=== PATIENT | female | born 1995 | race Caucasian/White ===

== ENCOUNTER 2023-03-29 18:09 | Inpatient (IN) | payer MEDICAID ==
[~2023-03-29] VITALS: Ht 172.7 cm; Wt 89.1 kg
[2023-03-29 22:07] LABS: BASOPHILS # (AUTO) 0.1 X10'3 (0-0.2); BASOPHILS % (AUTO) 0.5 % (0-1); EOSINOPHILS # (AUTO) 0.1 X10'3 (0-0.9); EOSINOPHILS % (AUTO) 0.6 % (0-6); HEMATOCRIT 40.8 % (35.0-45.0); HEMOGLOBIN 14.2 g/dl (12.0-16.0); LYMPHOCYTES # (AUTO) 1.5 X10'3 (1.1-4.8); LYMPHOCYTES % (AUTO) 14.2 % (21-51); MEAN CORPUSCULAR HEMOGLOBIN 30.5 PG (27.0-31.0); MEAN CORPUSCULAR HGB CONC 34.8 g/dL (33.0-36.5); MEAN CORPUSCULAR VOLUME 87.7 FL (78-98); MEAN PLATELET VOLUME 7.5 FL (7.4-10.4); MONOCYTES # (AUTO) 1.2 X10'3 (0-0.9); MONOCYTES % (AUTO) 11.6 % (2-12); NEUTROPHILS # (AUTO) 7.7 X10'3 (1.8-7.7); NEUTROPHILS % (AUTO) 73.1 % (42-75); PLATELET COUNT 262 X10'3 (140-440); RED BLOOD COUNT 4.65 X10'6 (4.20-5.60); RED CELL DISTRIBUTION WIDTH 12.5 % (11.5-14.5); WHITE BLOOD COUNT 10.6 X10'3 (4.5-11.0)
[2023-03-29 22:19] LABS: ALANINE AMINOTRANSFERASE 17 U/L (12-78); ALBUMIN 3.2 G/DL (3.4-5.0); ALBUMIN/GLOBULIN RATIO 0.8 (1.1-1.5); ALKALINE PHOSPHATASE 71 IU/L (46-116); ANION GAP 8 (8-16); ASPARTATE AMINO TRANSFERASE 13 U/L (10-37); BILIRUBIN,TOTAL 0.8 MG/DL (0.1-1.0); BLOOD UREA NITROGEN 7 MG/DL (7-18); BUN/CREATININE RATIO 8.3 (10.0-20.0); CALCIUM 8.6 MG/DL (8.5-10.1); CHLORIDE 97 MMOL/L (99-107); CREATININE 0.84 MG/DL (0.40-0.90); GLUCOSE 105 MG/DL (70-104); LIPASE 21 U/L (16-77); POTASSIUM 3.3 MMOL/L (3.5-5.1); SODIUM 133 MMOL/L (135-145); TOTAL PROTEIN 7.2 G/DL (6.4-8.2); eCRCL 101 ML/MIN; eGFR 81 ML/MIN
[2023-03-29] MEDS ORDERED: piperacillin/tazo 3.375gm/50ml 50 ML IV ONE (22:20)
[2023-03-29] MEDS ORDERED: HYDROmorphone inj. 0.5 MG/0.5 ML DISP.SYRIN IV PRN (23:05)
[2023-03-29] MEDS ORDERED: mag hydrox/Alum hydrox/simeth 30ml oral suspension PO PRN (23:05)
[2023-03-29] MEDS ORDERED: magnesium 2GM in 50ml NS 50 ML IV PRN (23:05)
[2023-03-29] MEDS ORDERED: magnesium hydroxide 30ml (MOM) UD suspension PO PRN (23:05)
[2023-03-29] MEDS ORDERED: magnesium 4gm in 100ml NS 100 ML IV PRN (23:05)
[2023-03-29] MEDS ORDERED: ondansetron/PF 4mg/2ml inj IV PRN (23:05)
[2023-03-29] MEDS ORDERED: potassium Cl 20 mEq SR tablet PO PRN (23:05)
[2023-03-29] MEDS ORDERED: acetaminophen 325mg tablet PO PRN (23:05)
[2023-03-29] MEDS ORDERED: potassium Cl 40MEQ/1/2NS 520ml 520 ML IV PRN (23:05)
[2023-03-30] VITALS (8 sets, daily range): BP systolic 105–127; BP diastolic 59–74; PULSE 74–95; RESP 14–20; TEMP 97.7–99.1; O2SAT 95–99
[2023-03-30] MEDS: normal saline 1000ml 1,000 ML IV SCH ×2 (00:09→13:04)
[2023-03-30 00:45] LABS: URINE HCG NEGATIVE (NEG)
[2023-03-30 00:47] LABS: BILIRUBIN,URINE SMALL (Neg); CLARITY,URINE SLIGHTLY CLOUDY (Clear); GLUCOSE, URINE NEGATIVE (Neg); KETONES,URINE 15 mg/dl (Neg); LEUKOCYTE ESTERASE ,URINE NEGATIVE (Neg); NITRITES, URINE NEGATIVE (Neg); OCCULT BLOOD,URINE TRACE-INTACT (Neg); PH,URINE 5.5 (4.8-8.0); PROTEIN,URINE TRACE mg/dl (Neg); UROBILINOGEN,URINE 0.2 E.U/dL (0.2-1.0)
[2023-03-30 00:53] LABS: COLOR,URINE DARK YELLOW (Yellow); UA COLLECTION TYPE CLN CATCH MIDSTREAM
[2023-03-30 00:57] LABS: MUCUS STRANDS MANY /LPF (Neg); SQUAMOUS EPITHELIAL CELL,UR FEW /LPF (FEW); TRANSITIONAL EPI CELLS,URINE FEW /HPF
[2023-03-30 01:09] LABS: RBC,URINE 0-2 /HPF (0-2); WBC,URINE 0-4 /HPF (0-4)
[2023-03-30 01:14] LABS: BACTERIA,URINE 1+ /HPF (Neg)
--- NOTE | 2023-03-30 01:50 | NUR ---
PT ARRIVED FROM ED BY WHEELCHAIR. PT HAS BEEN ORIENTED TO THE ROOM. RECEEIVED REPORT FROM ABHILASH.
[2023-03-30] MEDS: HYDROmorphone 1 mg/ml syringe IV PRN ×6 (01:51→23:57)
[2023-03-30] MEDS ORDERED: piperacillin/tazo 4.5gm/100ml 100 ML IV SCH ×2 (02:00)
[2023-03-30] MEDS: potassium Cl 20 mEq SR tablet PO PRN ×3 (02:31→20:03)
[2023-03-30] MEDS: piperacillin/tazo 4.5gm/100ml 100 ML IV SCH ×3 (02:44→19:00)
[2023-03-30] MEDS ORDERED: ONDA-103 PO (02:51)
[2023-03-30] MEDS ORDERED: HYDR-3973 PO (02:51)
--- NOTE | 2023-03-30 06:19 | NUR ---
Problems reprioritized. Patient report given, questions answered & plan of care reviewed with THANIA ROMERO.
--- NOTE | 2023-03-30 06:29 | NUR ---
PT'S HOME MEDICATION SENT TO PHARMACY.
[2023-03-30 06:50] LABS: BASOPHILS % (AUTO) 0.3 % (0-1); EOSINOPHILS # (AUTO) 0.1 X10'3 (0-0.9); EOSINOPHILS % (AUTO) 0.7 % (0-6); HEMOGLOBIN 13.1 g/dl (12.0-16.0); LYMPHOCYTES # (AUTO) 1.7 X10'3 (1.1-4.8); MEAN CORPUSCULAR HEMOGLOBIN 30.6 PG (27.0-31.0); MEAN CORPUSCULAR HGB CONC 34.4 g/dL (33.0-36.5); MEAN PLATELET VOLUME 7.5 FL (7.4-10.4); MONOCYTES # (AUTO) 1.2 X10'3 (0-0.9); NEUTROPHILS # (AUTO) 7.3 X10'3 (1.8-7.7); PLATELET COUNT 238 X10'3 (140-440); RED BLOOD COUNT 4.26 X10'6 (4.20-5.60); RED CELL DISTRIBUTION WIDTH 12.7 % (11.5-14.5); WHITE BLOOD COUNT 10.4 X10'3 (4.5-11.0)
[2023-03-30 07:13] LABS: ALANINE AMINOTRANSFERASE 21 U/L (12-78); ALBUMIN 2.8 G/DL (3.4-5.0); ALBUMIN/GLOBULIN RATIO 0.7 (1.1-1.5); ALKALINE PHOSPHATASE 67 IU/L (46-116); ANION GAP 3 (8-16); ASPARTATE AMINO TRANSFERASE 19 U/L (10-37); BILIRUBIN,TOTAL 1.2 MG/DL (0.1-1.0); BLOOD UREA NITROGEN 6 MG/DL (7-18); BUN/CREATININE RATIO 7.1 (10.0-20.0); CALCIUM 8.1 MG/DL (8.5-10.1); CHLORIDE 98 MMOL/L (99-107); CREATININE 0.85 MG/DL (0.40-0.90); GLUCOSE 100 MG/DL (70-104); MAGNESIUM 2.1 MG/DL (1.5-2.4); POTASSIUM 3.4 MMOL/L (3.5-5.1); SODIUM 133 MMOL/L (135-145); TOTAL CARBON DIOXIDE 32.2 MMOL/L (24-32); TOTAL PROTEIN 6.6 G/DL (6.4-8.2); eCRCL 100 ML/MIN; eGFR 80 ML/MIN
[2023-03-30] MEDS: K and/or MAG REPLACEMENT MC SCH ×2 (08:00→20:00)
[2023-03-30] MEDS: docusate sod 100mg capsule PO SCH ×2 (08:53→19:53)
--- NOTE | 2023-03-30 18:08 | NUR ---
Report to Aarti MOTNEIRO
[2023-03-31] VITALS (21 sets, daily range): BP systolic 102–146; BP diastolic 64–90; PULSE 77–104; RESP 15–32; TEMP 96.9–98.7; O2SAT 93–98
[2023-03-31] MEDS: normal saline 1000ml 1,000 ML IV SCH ×3 (00:01→15:05)
[2023-03-31] MEDS: piperacillin/tazo 4.5gm/100ml 100 ML IV SCH ×3 (04:00→18:00)
[2023-03-31] MEDS: HYDROmorphone 1 mg/ml syringe IV PRN ×3 (04:00→21:55)
--- NOTE | 2023-03-31 06:23 | NUR ---
Patient in room [facility]TH[facility] 4011. I have received report from Aarti MONTEIRO and had the opportunity to ask questions and assume patient care.
--- NOTE | 2023-03-31 06:27 | NUR ---
Problems reprioritized. Patient report given, questions answered & plan of care reviewed with THANIA ROMERO.
[2023-03-31 07:03] LABS: BASOPHILS % (AUTO) 0.3 % (0-1); EOSINOPHILS # (AUTO) 0.1 X10'3 (0-0.9); EOSINOPHILS % (AUTO) 0.8 % (0-6); HEMOGLOBIN 12.1 g/dl (12.0-16.0); LYMPHOCYTES # (AUTO) 1.4 X10'3 (1.1-4.8); LYMPHOCYTES % (AUTO) 17.6 % (21-51); MEAN CORPUSCULAR HEMOGLOBIN 30.5 PG (27.0-31.0); MEAN CORPUSCULAR HGB CONC 34.5 g/dL (33.0-36.5); MEAN CORPUSCULAR VOLUME 88.3 FL (78-98); MEAN PLATELET VOLUME 7.6 FL (7.4-10.4); MONOCYTES % (AUTO) 12.1 % (2-12); NEUTROPHILS # (AUTO) 5.6 X10'3 (1.8-7.7); NEUTROPHILS % (AUTO) 69.2 % (42-75); PLATELET COUNT 241 X10'3 (140-440); RED BLOOD COUNT 3.97 X10'6 (4.20-5.60); RED CELL DISTRIBUTION WIDTH 12.5 % (11.5-14.5); WHITE BLOOD COUNT 8.1 X10'3 (4.5-11.0)
[2023-03-31 07:13] LABS: ALANINE AMINOTRANSFERASE 23 U/L (12-78); ALBUMIN 2.4 G/DL (3.4-5.0); ALBUMIN/GLOBULIN RATIO 0.6 (1.1-1.5); ALKALINE PHOSPHATASE 94 IU/L (46-116); ANION GAP 6 (8-16); ASPARTATE AMINO TRANSFERASE 13 U/L (10-37); BILIRUBIN,TOTAL 0.7 MG/DL (0.1-1.0); BLOOD UREA NITROGEN 5 MG/DL (7-18); BUN/CREATININE RATIO 7.4 (10.0-20.0); CALCIUM 8.2 MG/DL (8.5-10.1); CHLORIDE 102 MMOL/L (99-107); CREATININE 0.68 MG/DL (0.40-0.90); GLUCOSE 86 MG/DL (70-104); MAGNESIUM 2.1 MG/DL (1.5-2.4); POTASSIUM 3.7 MMOL/L (3.5-5.1); SODIUM 134 MMOL/L (135-145); TOTAL CARBON DIOXIDE 25.9 MMOL/L (24-32); TOTAL PROTEIN 6.2 G/DL (6.4-8.2); eCRCL 125 ML/MIN; eGFR > 90 ML/MIN
[2023-03-31 07:27] LABS: INR 1.1 INR; PROTHROMBIN TIME 11.4 SECONDS (9.0-12.0)
[2023-03-31] MEDS: K and/or MAG REPLACEMENT MC SCH ×2 (08:00→20:00)
[2023-03-31] MEDS: docusate sod 100mg capsule PO SCH ×2 (08:00→21:53)
[2023-03-31 10:16] LABS: HCG SERUM QL NEGATIVE
[2023-03-31 10:44] LABS: PREOP URINE HCG NEGATIVE (NEGATIVE)
[2023-03-31] MEDS ORDERED: dextrose 50%-water 50ml dispensing syringe IV ONE (11:51)
--- NOTE | 2023-03-31 12:07 | NUR ---
PreOp blood sugar test: 69. One half amp D50 admin per md order prn. Report given to THAINA Johnson in pre-op. Elizabeth will recheck accucheck when arrives to RR. Mother accompanied pt to OR w/ OR staff.
[2023-03-31] MEDS ORDERED: BUPIVAcaine/PF 2.5 mg/ml (0.25%) 30ml vial ONE (14:11)
[2023-03-31] MEDS ORDERED: sevoflurane 250ml liquid IH ONE (14:34)
[2023-03-31] MEDS ORDERED: fentaNYL/PF 50MCG/1 ML 2ML syringe ONE (14:38)
[2023-03-31] MEDS ORDERED: midazolam 1 mg/ML 2ml injection ONE (14:39)
[2023-03-31] MEDS ORDERED: propofol inj 20 ML IV ONE (14:39)
[2023-03-31] MEDS ORDERED: rocuronium 10mg/ml inj IV ONE (14:39)
[2023-03-31] MEDS ORDERED: ceFOXitin 1000 MG inj ONE ×2 (14:50)
[2023-03-31] MEDS ORDERED: dexamethasone sod phosphate 4mg/ml inj. ONE (14:55)
[2023-03-31] MEDS ORDERED: ondansetron/PF 4mg/2ml inj ONE (15:49)
[2023-03-31] MEDS ORDERED: BUPIVAcaine/PF 2.5 mg/ml (0.25%) 30ml vial IJ ONE (15:56)
[2023-03-31] MEDS ORDERED: sugammadex 200mg/2ml injection IV ONE (16:03)
--- NOTE | 2023-03-31 16:15 | NUR ---
Received from OR via [facility]OSP[facility] BED TO RR 7, accompanied by Anesthesiologist TIM and report given by Anesthesiologist. PT PRESENTS ON 6L VIA MASK WITH SPO2 AT 97%. VSS. OK TO GIVE TYLENOL IV FOR TEMP 38.1 PER MD IN ROOM. HE WILL ENTER ORDER. 3 ABD LAP SITES WITH DERMABOND AND ONE OF THOSE SITES HAVE A LUISA DRAIN WITH GAUZE AND TEGADERM WELL. LR RUNNING THRU PIV. PT IS AROUSABLE AND DOES NOT COMPLAIN OF PAIN, NAUSEA, OR VOMITING.
[2023-03-31] MEDS ORDERED: meperidine/PF 25mg/ml syringe IV PRN ×3 (16:25)
[2023-03-31] MEDS ORDERED: labetalol 20mg/4ml (5mg/ml) syringe IV PRN (16:25)
[2023-03-31] MEDS ORDERED: ondansetron/PF 4mg/2ml inj IV PRN (16:25)
[2023-03-31] MEDS ORDERED: morphine 2 MG/ML inj. syringe IV PRN (16:25)
[2023-03-31] MEDS ORDERED: morphine 4 MG/ML inj SYRINge IV PRN (16:25)
[2023-03-31] MEDS ORDERED: acetaminophen 1,000mg/100ml IV 100 ML IV ONE (16:25)
[2023-03-31] MEDS ORDERED: ringers solution, lacted 1,000 ML IV SCH (16:25)
--- NOTE | 2023-03-31 17:25 | NUR ---
PT HAS MET TRANSFER CRITERIA BACK TO ROOM 4011A. CALLED REPORT TO THANIA ROMERO. ALL QUESTIONS, COMMENTS, AND CONCERNS WERE ANSWERED AT THIS TIME. ABD DRESSINGS REMAINS CDI. LUISA DRAIN IN PLACE. PT WAS TRANSFERRED TO ROOM, CALL LIGHT WITHIN REACH, BLL, 2 RAILS DOWN. PATIENT HOOKED UP TO POST OP VITALS. SOCKS IN PERSONAL BAG ON BED. MOM AT BEDSIDE. NURSE HEATHER IS AWARE OF PATIENT IN ROOM.
--- NOTE | 2023-03-31 18:50 | NUR ---
Patient in room [facility]TH[facility] 4011. I have received report from Josefina MONTEIRO and had the opportunity to ask questions and assume patient care.
[2023-04-01] MEDS: normal saline 1000ml 1,000 ML IV SCH ×3 (01:17→21:05)
[2023-04-01 01:58] VITALS: BP 123/75; PULSE 70; RESP 16; TEMP 98.6; O2SAT 97
[2023-04-01] MEDS: HYDROmorphone 1 mg/ml syringe IV PRN ×3 (02:10→18:49)
[2023-04-01] MEDS: piperacillin/tazo 4.5gm/100ml 100 ML IV SCH ×3 (03:09→18:49)
[2023-04-01 06:00] VITALS: BP 127/99; PULSE 72; RESP 16; TEMP 98.6; O2SAT 96
--- NOTE | 2023-04-01 06:52 | NUR ---
Problems reprioritized. Patient report given, questions answered & plan of care reviewed with Josefina MONTEIRO.
[2023-04-01 07:06] LABS: BASOPHILS % (AUTO) 0.1 % (0-1); EOSINOPHILS % (AUTO) 0 % (0-6); HEMATOCRIT 34.7 % (35.0-45.0); HEMOGLOBIN 11.8 g/dl (12.0-16.0); LYMPHOCYTES # (AUTO) 0.6 X10'3 (1.1-4.8); LYMPHOCYTES % (AUTO) 6.5 % (21-51); MEAN CORPUSCULAR HEMOGLOBIN 29.8 PG (27.0-31.0); MEAN CORPUSCULAR VOLUME 87.7 FL (78-98); MEAN PLATELET VOLUME 7.5 FL (7.4-10.4); MONOCYTES # (AUTO) 0.5 X10'3 (0-0.9); MONOCYTES % (AUTO) 4.8 % (2-12); NEUTROPHILS # (AUTO) 8.3 X10'3 (1.8-7.7); NEUTROPHILS % (AUTO) 88.6 % (42-75); PLATELET COUNT 314 X10'3 (140-440); RED BLOOD COUNT 3.95 X10'6 (4.20-5.60); RED CELL DISTRIBUTION WIDTH 12.4 % (11.5-14.5); WHITE BLOOD COUNT 9.4 X10'3 (4.5-11.0)
[2023-04-01 07:34] LABS: ALANINE AMINOTRANSFERASE 38 U/L (12-78); ALBUMIN 2.4 G/DL (3.4-5.0); ALBUMIN/GLOBULIN RATIO 0.6 (1.1-1.5); ALKALINE PHOSPHATASE 106 IU/L (46-116); ANION GAP 8 (8-16); ASPARTATE AMINO TRANSFERASE 31 U/L (10-37); BILIRUBIN,TOTAL 0.4 MG/DL (0.1-1.0); BLOOD UREA NITROGEN 6 MG/DL (7-18); BUN/CREATININE RATIO 9.5 (10.0-20.0); CALCIUM 8.6 MG/DL (8.5-10.1); CHLORIDE 103 MMOL/L (99-107); CREATININE 0.63 MG/DL (0.40-0.90); GLUCOSE 124 MG/DL (70-104); MAGNESIUM 2.1 MG/DL (1.5-2.4); POTASSIUM 3.7 MMOL/L (3.5-5.1); SODIUM 136 MMOL/L (135-145); TOTAL CARBON DIOXIDE 25.4 MMOL/L (24-32); TOTAL PROTEIN 6.6 G/DL (6.4-8.2); eCRCL 135 ML/MIN; eGFR > 90 ML/MIN
[2023-04-01 07:45] VITALS: RESP 18
[2023-04-01] MEDS: K and/or MAG REPLACEMENT MC SCH ×2 (08:00→20:00)
[2023-04-01] MEDS: docusate sod 100mg capsule PO SCH ×2 (08:42→20:00)
[2023-04-01] MEDS: HYDROcodone/acetaminophen 5mg/325mg tablet PO PRN ×2 (16:03→22:21)
[2023-04-01 18:00] VITALS: BP 110/66; PULSE 82; RESP 16; TEMP 97.3; O2SAT 96
--- NOTE | 2023-04-01 18:35 | NUR ---
Problems reprioritized. Patient report given, questions answered & plan of care reviewed with Prudence RN.
[2023-04-01 20:00] VITALS: RESP 16; O2SAT 96
[2023-04-01 22:00] VITALS: BP 103/55; PULSE 66; RESP 16; TEMP 97.8; O2SAT 97
[2023-04-02] MEDS: HYDROmorphone 1 mg/ml syringe IV PRN ×2 (02:00→06:49)
[2023-04-02] MEDS: piperacillin/tazo 4.5gm/100ml 100 ML IV SCH ×2 (03:21→11:10)
[2023-04-02 06:00] VITALS: BP 101/57; PULSE 64; RESP 16; TEMP 98.4; O2SAT 98
--- NOTE | 2023-04-02 06:04 | NUR ---
Problems reprioritized. Patient report given, questions answered & plan of care reviewed with DARIA STEPHENS.
[2023-04-02 06:59] LABS: BASOPHILS % (AUTO) 0.4 % (0-1); EOSINOPHILS # (AUTO) 0.1 X10'3 (0-0.9); EOSINOPHILS % (AUTO) 0.9 % (0-6); HEMATOCRIT 32.6 % (35.0-45.0); LYMPHOCYTES # (AUTO) 2.1 X10'3 (1.1-4.8); LYMPHOCYTES % (AUTO) 33.2 % (21-51); MEAN CORPUSCULAR HGB CONC 33.7 g/dL (33.0-36.5); MEAN PLATELET VOLUME 7.1 FL (7.4-10.4); MONOCYTES # (AUTO) 0.6 X10'3 (0-0.9); MONOCYTES % (AUTO) 9.2 % (2-12); NEUTROPHILS # (AUTO) 3.6 X10'3 (1.8-7.7); NEUTROPHILS % (AUTO) 56.3 % (42-75); PLATELET COUNT 328 X10'3 (140-440); RED BLOOD COUNT 3.66 X10'6 (4.20-5.60); RED CELL DISTRIBUTION WIDTH 12.3 % (11.5-14.5); WHITE BLOOD COUNT 6.4 X10'3 (4.5-11.0)
[2023-04-02] MEDS: normal saline 1000ml 1,000 ML IV SCH (07:05)
[2023-04-02 07:07] LABS: ALANINE AMINOTRANSFERASE 32 U/L (12-78); ALBUMIN 2.3 G/DL (3.4-5.0); ALBUMIN/GLOBULIN RATIO 0.6 (1.1-1.5); ALKALINE PHOSPHATASE 82 IU/L (46-116); ANION GAP 4 (8-16); ASPARTATE AMINO TRANSFERASE 34 U/L (10-37); BILIRUBIN,TOTAL 0.2 MG/DL (0.1-1.0); BLOOD UREA NITROGEN 8 MG/DL (7-18); BUN/CREATININE RATIO 10.8 (10.0-20.0); CALCIUM 8.6 MG/DL (8.5-10.1); CHLORIDE 105 MMOL/L (99-107); CREATININE 0.74 MG/DL (0.40-0.90); GLUCOSE 85 MG/DL (70-104); MAGNESIUM 2.1 MG/DL (1.5-2.4); POTASSIUM 3.9 MMOL/L (3.5-5.1); SODIUM 139 MMOL/L (135-145); TOTAL CARBON DIOXIDE 30.4 MMOL/L (24-32); TOTAL PROTEIN 6.2 G/DL (6.4-8.2); eCRCL 115 ML/MIN; eGFR > 90 ML/MIN
[2023-04-02 08:00] VITALS: RESP 19; O2SAT 96
[2023-04-02] MEDS: K and/or MAG REPLACEMENT MC SCH (08:00)
[2023-04-02] MEDS: docusate sod 100mg capsule PO SCH (08:29)
[2023-04-02 10:00] VITALS: BP 113/62; PULSE 72; RESP 19; TEMP 97.6; O2SAT 96
[2023-04-02] MEDS: HYDROcodone/acetaminophen 5mg/325mg tablet PO PRN (10:23)
--- NOTE | 2023-04-02 11:58 | NUR ---
LUISA discontinued per MD orders, tolerated well, tip intact.
[2023-04-02] MEDS ORDERED: HYDR-3973 PO (11:59)
--- NOTE | 2023-04-02 12:21 | NUR ---
I have reviewed and agree with all interventions, assessments performed and documented by Chen .
--- NOTE | 2023-04-02 13:10 | NUR ---
Patient discharged home via POV with all personal belongings, including medications that had been stored in the pharmacy. PIV was discontinued with tip intact, tolerated well. Questions answered. Patient was alert and appropriate at the time of discharge.
== END 2023-04-02 13:25 | disposition home or self-care (01) | DRG 263 ==
LOC: ER 18:11 → ED HOLD 23:11 → ORTHO 4S 03-30 01:48
PROVIDERS: ADMIT Family Medicine; ATTEND Internal Medicine
PROC: 0FT44ZZ Resection of Gallbladder, Percutaneous Endoscopic Approach (ICD-10-PCS; principal; 2023-03-31 14:34)
DX: K80.00 Calculus of gallbladder with acute cholecystitis without obstruction (principal); E87.1 Hypo-osmolality and hyponatremia; E66.9 Obesity, unspecified; F17.290 Nicotine dependence, other tobacco product, uncomplicated; E87.6 Hypokalemia; Z83.3 Family history of diabetes mellitus; Z82.5 Family history of asthma and other chronic lower respiratory diseases; Z71.6 Tobacco abuse counseling; Z68.29 Body mass index [BMI] 29.0-29.9, adult
CPT/HCPCS: 36415; 74181; 76700; 80053; 81001; 81025; 82948; 83690; 83735; 84703; 85025; 85610; 87081; 99285; A4215; A4615; A4618; A6258; A6402; A6449; A7000; G0378; J0131; J0694; J1100; J1170; J2175; J2250; J2405; J2543; J2704; J3010; J3490; J7030; J7120